=== PATIENT | male | born 2000 | race Caucasian/White ===

== ENCOUNTER 2019-05-22 23:04 | Emergency (ER) | payer SELFPAY ==
[~2019-05-22] VITALS: Ht 175.2 cm; Wt 83.9 kg
[2019-05-22 23:05] VITALS: BP 144/59
[2019-05-23] MEDS ORDERED: IBU800 M1 PO (00:16)
[2019-05-23] MEDS ORDERED: CYCLOBENZAPRINE10 MG PO (00:16)
[2019-05-23] MEDS ORDERED: TRAMADOL HCL50 MG PO (00:18)
== END 2019-05-23 00:25 | disposition home or self-care (01) ==
LOC: ED 23:04
DX: S39.012A Strain of muscle, fascia and tendon of lower back, initial encounter (principal); S30.0XXA Contusion of lower back and pelvis, initial encounter; W10.8XXA Fall (on) (from) other stairs and steps, initial encounter; Y93.89 Activity, other specified; Y92.89 Other specified places as the place of occurrence of the external cause; Y99.8 Other external cause status

== ENCOUNTER 2019-10-12 08:57 | Emergency (ER) | payer SELFPAY ==
[~2019-10-12] VITALS: Ht 175.2 cm; Wt 77.1 kg
[~2019-10-12 08:57] MED LIST: CYCLOBENZAPRINE10 MG PO; IBU800 M1 PO; TRAMADOL HCL50 MG PO
[2019-10-12 09:04] VITALS: BP 139/81
[2019-10-12] MEDS ORDERED: Tobrex Ophth S2.5 ML OPH (09:49)
== END 2019-10-12 09:39 | disposition home or self-care (01) ==
LOC: ED 08:57
DX: H00.021 Hordeolum internum right upper eyelid (principal)